=== PATIENT | male | born 1985 | race Caucasian/White ===

== ENCOUNTER 2023-08-03 22:21 | Emergency (ER) | payer OTHER, SELFPAY ==
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
[2023-08-03 22:38] VITALS: BP 140/90; PULSE 120; RESP 18; TEMP 36.9; O2SAT 98
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
[2023-08-03] MEDS: IBUPROFEN 600 MG TABLET PO (23:38)
[2023-08-03] MEDS: HYDROcodone/acetaminophen (*CRX) 5-325 MG TABLET 1 TAB PO (23:39)
[2023-08-04] MEDS: MORPHINE SULFATE INJ (*CRX) 10 MG/ML AMP 2 MG IM (01:07)
[2023-08-04 01:10] VITALS: BP 157/91; PULSE 106; RESP 20; O2SAT 98
== END 2023-08-04 01:11 | disposition home or self-care (01) ==
PROVIDERS: Emergency Provider Emergency Medicine; PCP Family Medicine Sports Medicine
DX: M54.2 Cervicalgia (principal); S00.83XA Contusion of other part of head, initial encounter; V43.62XA Car passenger injured in collision with other type car in traffic accident, initial encounter; Y92.411 Interstate highway as the place of occurrence of the external cause
CPT/HCPCS: 70450; 72125; 96372; 99284; A9270; J2270

== ENCOUNTER 2023-09-02 19:42 | Emergency (ER) | payer OTHER, SELFPAY ==
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
[2023-09-02 19:49] VITALS: BP 142/91; PULSE 89; RESP 18; TEMP 36.9; O2SAT 100
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
[2023-09-02] MEDS: SODIUM CHLORIDE 0.9% IV 1,000 ML 999 ML IV CONT (21:43)
[2023-09-02] MEDS: diphenhydrAMINE HCl INJ 50 MG/ML VIAL IV PUSH (21:43)
[2023-09-02] MEDS: PROCHLORPERAZINE EDISYLATE 10 MG/2 ML VIAL IV PUSH (21:43)
[2023-09-02 22:38] VITALS: BP 140/87; PULSE 86; RESP 17; O2SAT 100
== END 2023-09-02 22:39 | disposition home or self-care (01) ==
PROVIDERS: Emergency Provider Emergency Medicine
DX: R51.9 Headache, unspecified (principal); F07.81 Postconcussional syndrome
CPT/HCPCS: 70450; 70486; 72125; 96361; 96374; 96375; 99284; J0780; J1200; J7030

== ENCOUNTER 2023-09-25 07:46 | Emergency (ER) | payer SELFPAY ==
--- NOTE | ~2023-09-25 | CT_ITS ---
Non-contrast CT scan of the Abdomen and Pelvis Clinical indication: Kidney stone Technique: 2.5 mm axial scans were obtained through the abdomen and pelvis without intravenous or or al contrast. Dose reduction technique was used on this scan by utilizing automated exposure control a nd iterative reconstruction technique. The dose-length product (DLP) was 442.36 mGy-cm. Findings: Images through the lung bases reveal no abnormalities. There is no evidence of renal or ureteral calculi. The kidneys and the ureters are nondilated. The liver, spleen, pancreas, gallbladder, and adrenals appear normal. There is no aortic aneurysm. There is no evidence of bowel obstruction. No evidence for appendicitis. Images through the pelvis were performed. There is no evidence of ascites or lymphadenopathy. Urinary bladder unremarkable. No pelvic mass seen. Impression: Unremarkable exam. Reviewed, dictated and finalized at [facility]. ER [facility] Impression: Unremarkable exam.
[2023-09-25 07:47] VITALS: BP 136/87; PULSE 120; RESP 16; O2SAT 100
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
[2023-09-25] MEDS: ACETAMINOPHEN 325 MG TABLET 650 MG PO (09:04)
[2023-09-25] MEDS: HYDROcodone/acetaminophen (*CRX) 5-325 MG TABLET 1 TAB PO (09:04)
[2023-09-25] MEDS: SODIUM CHLORIDE 0.9% IV 1,000 ML 999 ML IV CONT (10:09)
[2023-09-25 10:17] LABS: Add Urine Microscopic? YES; Appearance Urine Clear (Clear); Bacteria Urine None Seen /hpf; Bilirubin Urine Negative (Negative); Blood Urine Negative (Negative); Color Urine Yellow (Yellow); Glucose Urine UA Negative (Negative); Ketones Urine Negative (Negative); Leukocyte Esterase Ur Negative LEU/UL (Negative); Need Manual Microscopic Reviewed; Nitrate Urine Negative (Negative); Non Pathogenic Casts 0-2; Protein Urine Trace mg/dL (Negative); RBC Urine 0-2 /hpf (0-2); Specific Grav Ur 1.031 (1.001-1.035); Spermatozoa Urine Present; Squamous Epithelial Cell Urine None seen /hpf (Few); WBC Urine 0-5 /hpf
[2023-09-25 10:48] VITALS: BP 127/76; PULSE 99; RESP 18; TEMP 36.8; O2SAT 100
== END 2023-09-25 12:21 | disposition home or self-care (01) ==
PROVIDERS: Emergency Provider Student in an Organized Health Care Education/Training Program
DX: S39.012A Strain of muscle, fascia and tendon of lower back, initial encounter (principal); X50.9XXA Other and unspecified overexertion or strenuous movements or postures, initial encounter
CPT/HCPCS: 74176; 81001; 96360; 99284; A9270; J7030